=== PATIENT | female | born 1990 | race African-American/Black ===

== ENCOUNTER 2018-08-16 16:28 | Emergency (ER) | payer BC ==
[2018-08-16 16:39] VITALS: BP 131/84; PULSE 70; TEMP 97.5; BMI 36.6
--- NOTE | 2018-08-16 17:23 | PDOC ---
History of Present Illness - General Chief Complaint: Injury Stated Complaint: FALL Time Seen by Provider: 08/16/18 17:16 History Source: Patient Exam Limitations: No Limitations - History of Present Illness Severity: reports: moderate Pain Location: reports: back, upper extremity (right shoulder ) Modifying Factors: improves with: None Loss of Consciousness: no loss of consciousness Associated Symptoms (Fall): denies symptoms, muscle spasms, neck pain Past History - Travel Traveled outside of the country in the last 30 days: No Close contact w/someone who was outside of country & ill: No - Past Medical History Allergies/Adverse Reactions: Allergies Allergy/AdvReac Type Severity Reaction Status Date / Time No Known Allergies Allergy Verified 04/04/18 00:46 Home Medications: Ambulatory Orders Diphenhydramine HCl [Benadryl Capsules -] 25 mg PO TID #30 capsule 04/04/18 Loratadine [Claritin] 10 mg PO DAILY #30 tablet 04/04/18 Methylprednisolone [Medrol Dose Eddie] 4 mg PO ASDIR #21 tablet 04/04/18 Cyclobenzaprine HCl 10 mg PO Q8H PRN #14 tablet 08/16/18 Naproxen [Naprosyn -] 500 mg PO BID #30 tablet 08/16/18 COPD: No - Immunization History Immunization Up to Date: Yes - Suicide/Smoking/Psychosocial Hx Smoking History: Never smoked Have you smoked in the past 12 months: No Information on smoking cessation initiated: No Hx Alcohol Use: No Drug/Substance Use Hx: No Substance Use Type: None Review of Systems - Review of Systems Able to Perform ROS?: Yes Is the patient limited Chadian proficient: Yes Constitutional: Yes: Symptoms Reported, See HPI, Loss of Appetite, Malaise HEENTM: Yes: See HPI. No: Symptoms Reported Respiratory: Yes: See HPI. No: Symptoms reported ABD/GI: No: Symptoms Reported : No: Symptoms Reported Musculoskeletal: Yes: Symptoms Reported, See HPI, Back Pain, Muscle Pain Integumentary: Yes: Symptoms Reported, See HPI, Bruising All Other Systems: Reviewed and Negative *Physical Exam - Vital Signs Last Vital Signs Temp Pulse Resp BP Pulse Ox 97.5 F L 70 16 131/84 100 08/16/18 16:33 08/16/18 16:33 08/16/18 16:33 08/16/18 16:33 08/16/18 16:33 - Physical Exam General Appearance: Yes: Nourished, Appropriately Dressed, Apparent Distress, Mild Distress, Moderate Distress HEENT: positive: DORON, Normal ENT Inspection, TMs Normal, Pharynx Normal Neck: positive: Tender (with spasm ), Supple. negative: Lymphadenopathy (R), Lymphadenopathy (L) Respiratory/Chest: positive: Lungs Clear, Normal Breath Sounds, Other ( tenderness and limited range of motion although able to abduct forward extend right arm slowly. Has reproduced tenderness at before meals joint and some mild tension and shoulder capsule. Although no upper humeral elbow or hand pain to the right arm. Has no C-spine tenderness crepitus or step-offs, some mild tension to the upper back muscles.) Gastrointestinal/Abdominal: positive: Soft. negative: Tender Musculoskeletal: negative: Normal Inspection, CVA Tenderness Extremity: positive: Normal Capillary Refill, Normal Inspection, Tender. 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 AC joint appears intact. *DC/Admit/Observation/Transfer Diagnosis at time of Disposition: Sprain of shoulder, right Qualifiers: Encounter type: initial encounter Shoulder sprain type: unspecified sprain Qualified Code(s): S43.401A - Unspecified sprain of right shoulder joint, initial encounter - Discharge Dispostion Disposition: HOME Condition at time of disposition: Stable Decision to Admit order: No - Referrals - Patient Instructions Printed Discharge Instructions: DI for Shoulder Sprain, DI for Contusion Additional Instructions: Rest, no heavy lifting or exercise until pain is resolved Hot soaks to neck and low back as often as possible/hot showers or Jacuzzis No massage or therapy until spasm is gone Continue Naprosyn 500 mg tablet, 1 tablet every 12 hours for the next 3 days then as needed for pain and swelling Cyclobenzaprine 1-10mg every 8 hours as needed for spasm If not significant improvement within 24 hours with medication and rest regime, followup with private physician for change in medications and /or therapy. - Post Discharge Activity Forms/Work/School Notes: Back to Work
[2018-08-16] MEDS ORDERED: IBUPROFEN 400 MG TABLET (FP) PO ONE ×2 (17:52→17:54)
[2018-08-16] MEDS ORDERED: CYCLOBENZAPRINE HCL 10 MG TABLET (FP) ONE (18:42)
== END 2018-08-16 18:40 | disposition home or self-care (01) ==
LOC: JER 16:28 → JERFT 16:28
DX: S43.401A Unspecified sprain of right shoulder joint, initial encounter (principal); S40.011A Contusion of right shoulder, initial encounter; M62.838 Other muscle spasm; W01.0XXA Fall on same level from slipping, tripping and stumbling without subsequent striking against object, initial encounter; Y93.89 Activity, other specified; Y92.89 Other specified places as the place of occurrence of the external cause; Y99.8 Other external cause status
CPT/HCPCS: 73030-TC-RT-FY; 84703; 99281-25

== ENCOUNTER 2019-12-10 16:38 | Emergency (ER) | payer OTHER, BC ==
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
[2019-12-10 17:00] VITALS: BP 112/68; PULSE 80; TEMP 98.4; BMI 38.2
[2019-12-10] MEDS ORDERED: ACETAMINOPHEN 325 MG TABLET (FP) PO ONE (17:24)
[2019-12-10] MEDS ORDERED: DIPHTH,PERTUSS(ACELL),TET 0.5 ML DISP.SYRIN IM ONE ×2 (17:25→17:35)
[2019-12-10] MEDS ORDERED: ACETAMINOPHEN 500 MG TABLET (FP) ONE (17:34)
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
== END 2019-12-10 19:59 | disposition home or self-care (01) ==
LOC: JERFT 16:38
PROC: 3E0234Z Introduction of Serum, Toxoid and Vaccine into Muscle, Percutaneous Approach (ICD-10-PCS; principal; 2019-12-10)
DX: Z04.1 Encounter for examination and observation following transport accident (principal); M54.2 Cervicalgia; M54.5 Low back pain; M25.551 Pain in right hip; M79.604 Pain in right leg; M79.605 Pain in left leg; S70.211A Abrasion, right hip, initial encounter; V23.4XXA Motorcycle driver injured in collision with car, pick-up truck or van in traffic accident, initial encounter; Y92.415 Exit ramp or entrance ramp of street or highway as the place of occurrence of the external cause; Y93.89 Activity, other specified; Y99.8 Other external cause status
CPT/HCPCS: 72050-TC-FY; 72100-TC-FY; 73523-TC-FY; 73552-TC-LT-FY; 73552-TC-RT-FY; 84703; 90715; 99284-25